=== PATIENT | female | born 2000 | race Caucasian/White ===

== ENCOUNTER 2018-01-08 00:19 | Emergency (ER) | payer OTHER ==
[~2018-01-08] VITALS: Ht 175.3 cm; Wt 97.0 kg
[2018-01-08] MEDS ORDERED: KETOROLAC 30 MG/1 ML IVPush ONE (01:00)
[2018-01-08] MEDS ORDERED: METOCLOPRAMIDE 5 MG/ML, 2ML IVPush ONE (01:00)
[2018-01-08] MEDS ORDERED: METOCLOPRAMIDE 5 MG/ML, 2ML ONE (01:04)
[2018-01-08] MEDS ORDERED: KETOROLAC 30 MG/1 ML ONE (01:04)
[2018-01-08 01:33] LABS: BASOPHILS # (AUTO) 0.03 x10^3/uL (0-0.3); BASOPHILS % (AUTO) 0 % (0-1); EOSINOPHILS % (AUTO) 1 % (1-7); LYMPHOCYTES # (AUTO) 2.81 x10^3/uL (1-6.1); LYMPHOCYTES % (AUTO) 30 % (22-44); MD NO; MEAN CORPUSCULAR HEMOGLOBIN 31.1 pg (27.0-34.8); MEAN CORPUSCULAR HGB CONC 34.7 g/dL (32.4-35.8); MEAN CORPUSCULAR VOLUME 89.7 fL (80-100); MEAN PLATELET VOLUME 7.2 fL (7.4-10.4); MONOCYTES # (AUTO) 0.69 x10^3/uL (0-1.4); MONOCYTES % (AUTO) 8 % (2-9); NEUTROPHILS # (AUTO) 5.65 x10^3/uL (1.8-8.0); NEUTROPHILS % (AUTO) 61 % (42-75); PLATELET COUNT 330 x10^3/uL (130-400); RED CELL DISTRIBUTION WIDTH 12.6 % (9.6-15.2)
[2018-01-08 01:50] LABS: ALANINE AMINOTRANSFERASE 21 U/L (12-78); ANION GAP 10 mmol/L (5-15); CALCIUM 9.3 mg/dL (8.5-10.1); CHLORIDE 113 mmol/L (98-107); CREATININE 1.01 mg/dL (0.55-1.02)
[2018-01-08 01:55] LABS: ALKALINE PHOSPHATASE 71 U/L (45-117); BILIRUBIN,TOTAL 0.6 mg/dL (0.2-1.0); TOTAL PROTEIN 8.4 g/dL (6.4-8.2)
[2018-01-08 02:06] LABS: CULTURE INDICATED? YES; MICROSCOPIC INDICATED
[2018-01-08 02:59] VITALS: BP 115/73
== END 2018-01-08 04:06 | disposition home or self-care (01) ==
LOC: ED 04:00
DX: R10.11 Right upper quadrant pain (principal); Z88.1 Allergy status to other antibiotic agents
CPT/HCPCS: 36415; 76700; 80053; 81001; 83690; 84703; 85025; 87086; 96374; 96375; 99285; J1885; J2765

== ENCOUNTER 2020-09-26 21:06 | Inpatient (IN) | payer MEDICAID, OTHER ==
[~2020-09-26] VITALS: Ht 177.8 cm; Wt 111.3 kg
[2020-09-26 22:17] LABS: BASOPHILS % (AUTO) 1 % (0-1); EOSINOPHILS % (AUTO) 1 % (1-7); LYMPHOCYTES % (AUTO) 46 % (22-44); MEAN CORPUSCULAR HEMOGLOBIN 31.2 pg (27.0-34.8); MEAN CORPUSCULAR HGB CONC 34.2 g/dL (32.4-35.8); MEAN PLATELET VOLUME 6.8 fL (7.4-10.4); MONOCYTES % (AUTO) 11 % (2-9); NEUTROPHILS % (AUTO) 42 % (42-75); PLATELET COUNT 335 x10^3/uL (130-400); RED BLOOD COUNT 4.82 x10^6/uL (3.82-5.3); RED CELL DISTRIBUTION WIDTH 12.7 % (9.6-15.2)
[2020-09-26 22:18] LABS: MD NO
[2020-09-26 22:29] LABS: ALANINE AMINOTRANSFERASE 19 U/L (12-78); ALBUMIN 3.3 g/dL (3.4-5.0); ANION GAP 7 mmol/L (5-15); CALCIUM 8.5 mg/dL (8.5-10.1); CHLORIDE 111 mmol/L (98-107); CREATININE 0.93 mg/dL (0.55-1.02)
[2020-09-26 22:33] LABS: ALKALINE PHOSPHATASE 73 U/L (45-117); BILIRUBIN,TOTAL 0.3 mg/dL (0.2-1.0); TOTAL PROTEIN 7.3 g/dL (6.4-8.2)
--- NOTE | 2020-09-26 23:19 | NUR ---
1ST CONTACT C PT. RESTING ON CART, C/O OF RUQ PAIN X SAT. AWARE OF PLAN FOR [place]. FAMILY AT BS.
[2020-09-26] MEDS ORDERED: ONDANSETRON ODT 4 MG ONE (23:24)
[2020-09-26] MEDS ORDERED: OXYcodone/APAP 5/325MG TABLET ONE (23:24)
--- NOTE | 2020-09-26 23:28 | NUR ---
PT MEDICATED PER JUN. WILL CTM.
[2020-09-26] MEDS ORDERED: ONDANSETRON ODT 4 MG PO ONE (23:30)
[2020-09-26] MEDS ORDERED: OXYcodone/APAP 5/325MG TABLET PO ONE (23:30)
[2020-09-27] MEDS ORDERED: ONDANSETRON 2MG/ML, 2ML ONE ×2 (01:17→13:27)
[2020-09-27] MEDS ORDERED: MORPHINE SULFATE 4 MG/ML, 1ML ONE (01:18)
[2020-09-27] MEDS ORDERED: SODIUM CHLORIDE 0.9% 1,000ML IVBOLUS ONE (01:30)
[2020-09-27] MEDS ORDERED: ONDANSETRON 2MG/ML, 2ML IVPush ONE (01:30)
[2020-09-27] MEDS ORDERED: MORPHINE SULFATE 4 MG/ML, 1ML IVPush PRN (01:30)
--- NOTE | 2020-09-27 01:33 | NUR ---
PT GIVEN MEDS PER MAR, TOLERATED WELL. AWARE OF NPO STATUS & SX IN AM. FAMILY AT BS. WILL CTM.
[2020-09-27] MEDS ORDERED: POLYETHYLENE GLYCOL 17 GM PACKET PO PRN (02:00)
[2020-09-27] MEDS ORDERED: TEMAZEPAM 15 MG CAPSULE PO PRN (02:00)
[2020-09-27] MEDS ORDERED: LORazepam 2 MG/ML, 1ML IVPush PRN (02:00)
[2020-09-27] MEDS ORDERED: DOCUSATE 100 MG CAPSULE PO PRN (02:00)
[2020-09-27] MEDS ORDERED: ONDANSETRON 2MG/ML, 2ML IVPush PRN ×2 (02:00→13:00)
[2020-09-27] MEDS ORDERED: BISACODYL 10 MG SUPP PR PRN (02:00)
[2020-09-27] MEDS ORDERED: hydrALAzine 20 MG/ML, 1ML IVPush PRN (02:00)
[2020-09-27] MEDS ORDERED: MELATONIN 5 MG TABLET PO PRN (02:00)
[2020-09-27] MEDS ORDERED: ACETAMINOPHEN 325 MG TABLET PO PRN ×2 (02:00→13:00)
[2020-09-27] MEDS: SODIUM CHLORIDE 0.9% 1,000 ML IV SCH ×2 (03:15→10:25)
[2020-09-27 03:30] VITALS: BP 115/76
[2020-09-27] MEDS: MORPHINE SULFATE 4 MG/ML, 1ML IVPush PRN ×3 (05:18→16:32)
[2020-09-27 07:49] VITALS: BP 121/80
[2020-09-27] MEDS: FAMOTIDINE 20 MG TABLET PO SCH ×2 (10:19→21:22)
[2020-09-27] MEDS ORDERED: EPINEPHRINE 1 MG/ML, 1ML ONE (12:20)
[2020-09-27] MEDS ORDERED: BUPIVACAINE/PF 0.5% ONE (12:20)
[2020-09-27] MEDS ORDERED: MIDAZOLAM 1 MG/ML, 2ML ONE (12:21)
[2020-09-27] MEDS ORDERED: FENTANYL PF 100 MCG/2ML ONE ×2 (12:21→14:22)
[2020-09-27] MEDS ORDERED: CHLORHEXIDINE 15 ML UDC ONE (12:49)
[2020-09-27] MEDS ORDERED: OXYcodone 5 MG/5 ML ORAL.SOL UDC PO PRN (13:00)
[2020-09-27] MEDS ORDERED: LABETALOL 5MG/ML, 20ML IV PRN (13:00)
[2020-09-27] MEDS ORDERED: CHLORHEXIDINE 15 ML UDC PO ONE (13:00)
[2020-09-27] MEDS ORDERED: PROMETHAZINE 25 MG/ML, 1ML IVPush PRN (13:00)
[2020-09-27] MEDS ORDERED: HYDROmorphone 1 MG/ML, 1ML INJ IVPush PRN (13:00)
[2020-09-27] MEDS ORDERED: hydrALAzine 20 MG/ML, 1ML IV PRN (13:00)
[2020-09-27] MEDS ORDERED: EPHEDRINE 50 MG/ML, 1ML IVPush PRN (13:00)
[2020-09-27] MEDS ORDERED: FENTANYL PF 100 MCG/2ML IV PRN (13:00)
[2020-09-27] MEDS ORDERED: CEFOTETAN 2 GM ONE (13:23)
[2020-09-27] MEDS ORDERED: LIDOCAINE-MPF 2% ,5ML ONE (13:25)
[2020-09-27] MEDS ORDERED: KETOROLAC 30 MG/1 ML ONE ×2 (13:25)
[2020-09-27] MEDS ORDERED: GLYCOPYRROLATE 0.2MG/1ML, 5ML ONE (13:27)
[2020-09-27] MEDS ORDERED: NEOSTIGMINE 1 MG/ML, 10ML ONE (13:27)
[2020-09-27] MEDS ORDERED: ROCURONIUM 10MG/ML,5ML ONE (13:27)
[2020-09-27] MEDS ORDERED: SUCCINYLCHOLINE 20 MG/ML, 10ML ONE (13:27)
[2020-09-27] MEDS ORDERED: PROPOFOL 10 MG/ML, 20ML ONE (13:27)
[2020-09-27] MEDS ORDERED: DEXAMETHASONE 4 MG/ML, 1ML ONE (13:27)
[2020-09-27] MEDS ORDERED: HYDROcodone/APAP 7.5-325MG/15ML UDC ONE (14:22)
[2020-09-27] MEDS ORDERED: ACETAMINOPHEN 650 MG/20.3 ML UDC ONE (14:35)
[2020-09-27] MEDS ORDERED: OXYcodone 5 MG/5 ML ORAL.SOL UDC ONE (14:35)
[2020-09-27 15:15] VITALS: BP 120/83
[2020-09-27 19:01] VITALS: BP 122/80
[2020-09-27] MEDS ORDERED: OXYcodone IR 5MG TABLET PO PRN (21:00)
[2020-09-27 22:48] VITALS: BP 110/72
[2020-09-27] MEDS ORDERED: OXYC1TAB14 PO (22:57)
[2020-09-27] MEDS ORDERED: ONDA4TAB7 PO (22:58)
[2020-09-27 23:25] VITALS: BP 116/77
== END 2020-09-27 23:30 | disposition home or self-care (01) | DRG 419 ==
LOC: ED 21:30 → EDIP 09-27 01:45 → 4NE 09-27 01:59
PROVIDERS: ADMIT Internal Medicine; ATTEND Internal Medicine
PROC: 0FT44ZZ Resection of Gallbladder, Percutaneous Endoscopic Approach (ICD-10-PCS; principal; 2020-09-27 12:00)
DX: K80.20 Calculus of gallbladder without cholecystitis without obstruction (principal); F12.90 Cannabis use, unspecified, uncomplicated; K76.0 Fatty (change of) liver, not elsewhere classified; Z20.822 Contact with and (suspected) exposure to COVID-19; Z82.49 Family history of ischemic heart disease and other diseases of the circulatory system; Z79.899 Other long term (current) drug therapy; Z88.8 Allergy status to other drugs, medicaments and biological substances
CPT/HCPCS: 36415; 96374; 96375; 99285; J3490; S0020; 76700; 80053; 83690; 84703; 85025; 87635; 88304; G0378; J0171; J1100; J1885; J2250; J2405; J2704; J2710; J3010; Q0162; J0330; J2060; J2270; J7030